=== PATIENT | male | born 1990 | race Caucasian/White ===

== ENCOUNTER → 2018-06-30 | Outpatient (CLI) | payer OTHER ==
--- NOTE | 2018-06-30 17:56 | XR ---
Right shoulder HISTORY: Pain, trauma 3 views of the right shoulder Bone mineralization, joint spaces and alignment are maintained. Right lung apex as visualized is norm al. IMPRESSION: No fracture or dislocation. Shoulder MRI may be of benefit.
== END | disposition home or self-care (01) ==
LOC: RADXRMAIN 15:06
PROVIDERS: ATTEND Family Medicine
DX: M25.511 Pain in right shoulder (principal)

== ENCOUNTER → 2018-08-01 | Outpatient (CLI) | payer OTHER ==
--- NOTE | 2018-08-04 00:29 | MR ---
EXAMINATION TYPE: MR shoulder RT wo con DATE OF EXAM: 08/01/2018 COMPARISON: Radiograph 06/30/2018 HISTORY: 28-year-old male Right shoulder pain TECHNIQUE: Multiplanar, multisequence imaging of the right shoulder is performed without contrast. FINDINGS: Long head biceps tendon is intact and appropriately situated along the bicipital groove. Subscapularis tendon is intact. AC joint is intact. No significant encroachment onto the underlying cuff. Trace fluid is present within the subacromial/subdeltoid bursa. There is focal high signal involving the mid supraspinatus tendon fibers measuring 1.1 cm AP and 8 mm long just proximal to the footprint, refer to sagittal series 601 image 22 and coronal image 16. On the sagittal series, this signal extends peripherally to the bursal surface. Proximal to the footprin t, below the level of the acromion, there is some articular sided fraying of the posterior supraspina tus tendon fibers. Otherwise, no fluid signal seen within the supraspinatus or infraspinatus tendon. No atrophy of the rotator cuff musculature. Evaluation of the glenohumeral joint shows preserved articular cartilage and no significant joint eff usion. No discrete labral tear given nonarthrographic technique. No Hill-Sachs deformity or os acromiale. Patchy red marrow is present compatible with patient's relat ively young age. No suspicious bone marrow replacement. IMPRESSION: Focal tendinosis of the mid supraspinatus tendon fibers measuring 1.1 x 0.8 cm. As there is suggestio n of some volume loss of the tendon here and signal extending to the bursal surface, correlate for th e possibility of a low signal rotator cuff tear. If clinically indicated, MR arthrogram may be useful in further assessing. No rotator cuff muscle atrophy.
== END | disposition home or self-care (01) ==
LOC: RADMRIMAIN 06:27
PROVIDERS: ATTEND Family Medicine
DX: M75.81 Other shoulder lesions, right shoulder (principal)